=== PATIENT | male | born 1990 | race Caucasian/White ===

== ENCOUNTER → 2020-05-21 | Outpatient (CLI) | payer OTHER, SELFPAY ==
--- NOTE | 2020-06-09 11:13 | REP ---
LEFT RIB SERIES: CLINICAL: Trauma with left lower rib pain. TECHNIQUE: Frontal view of the chest with multiple views of the left hemithorax. FINDINGS: Frontal view of the chest demonstrates no acute consolidation/contusion, effusion or pneumothorax. Multiple views of the left hemithorax cannot exclude a very subtle nondisplaced fracture along the anterolateral margin of the left tenth rib. No other rib fracture or pathology is appreciated. IMPRESSION: Cannot exclude a very subtle nondisplaced fracture of the anterolateral left tenth rib. MTDD
== END ==
LOC: M WUC 14:46
PROVIDERS: ATTEND Physician Assistant
DX: S20.212A Contusion of left front wall of thorax, initial encounter (principal); X58.XXXA Exposure to other specified factors, initial encounter; Y92.89 Other specified places as the place of occurrence of the external cause